=== PATIENT | female | born 1970 | race Caucasian/White ===

== ENCOUNTER → 2016-10-13 | Outpatient (CLI) | payer OTHER ==
[~2016-10-13] MED LIST: IRON325 M1 PO; LEVAQUIN 5500 MG/TA1 PO; NORCO 325 MG-51 TAB PO; PYRIDIUM 100MG100 MG; TYLENOL 500MG500 MG PO; VITAMIN D1000 IU PO
== END ==
LOC: COL.RAD 09-15 15:00
DX: N85.9 Noninflammatory disorder of uterus, unspecified (principal)

== ENCOUNTER 2016-11-13 08:34 | Day surgery (SDC) | payer OTHER ==
[~2016-11-13] VITALS: Ht 165.1 cm; Wt 61.4 kg
[~2016-11-13 08:34] MED LIST changes: -LEVAQUIN 5500 MG/TA1 PO; -NORCO 325 MG-51 TAB PO; -PYRIDIUM 100MG100 MG; -TYLENOL 500MG500 MG PO
[2016-11-13 09:18] VITALS: BP 135/88; PULSE 80; TEMP 97.9
[2016-11-13] MEDS ORDERED: TYLENOL 500MG500 MG PO (09:22)
[2016-11-13] MEDS ORDERED: LEVAQUIN 5500 MG/TA1 PO (09:22)
[2016-11-13 11:46] VITALS: BP 140/84; PULSE 60
[2016-11-13] MEDS ORDERED: NORCO 325 MG-51 TAB PO (11:56)
[2016-11-13] MEDS ORDERED: PYRIDIUM 100MG100 MG (11:56)
[2016-11-13 12:01] VITALS: BP 141/70; PULSE 54
[2016-11-13 12:16] VITALS: BP 146/69; PULSE 54
[2016-11-13 12:31] VITALS: BP 143/71; PULSE 61
[2016-11-13 14:13] VITALS: BP 146/85; PULSE 68; TEMP 97.8
== END 2016-11-13 12:51 | disposition home or self-care (01) ==
LOC: SDCO 08:34
DX: N13.2 Hydronephrosis with renal and ureteral calculous obstruction (principal); J06.9 Acute upper respiratory infection, unspecified; J02.9 Acute pharyngitis, unspecified; N89.8 Other specified noninflammatory disorders of vagina; M54.2 Cervicalgia; H52.4 Presbyopia; E55.9 Vitamin D deficiency, unspecified; B07.0 Plantar wart; G25.81 Restless legs syndrome; G43.909 Migraine, unspecified, not intractable, without status migrainosus; N92.0 Excessive and frequent menstruation with regular cycle; M25.569 Pain in unspecified knee; G47.00 Insomnia, unspecified; K64.9 Unspecified hemorrhoids; L30.9 Dermatitis, unspecified; R07.9 Chest pain, unspecified
CPT/HCPCS: C1769; C2617; J0690; J2405; J2704; J3010; J7120; Q9967